=== PATIENT | female | born 1990 | race Caucasian/White ===

== ENCOUNTER 2017-03-24 08:45 | Inpatient (IN) | payer BC ==
[~2017-03-24] VITALS: Ht 162.7 cm; Wt 86.4 kg
[2017-04-17] VITALS (18 sets, daily range): BP systolic 97–117; BP diastolic 53–79; PULSE 71–101; TEMP 97.8–98.3
[2017-04-17] MEDS ORDERED: PRENATAL MVI (09:06)
[2017-04-17 10:12] LABS: BASO % 0.3 % (0.0-2.0); EOS # 0.1 (0.0-0.7); EOS % 1.3 % (0-4.0); GRAN # 5.4 (1.4-6.5); GRAN % 71.7 % (42.2-75.2); HEMATOCRIT 37.5 % (37.0-47.0); LYMPH # 1.6 (1.2-3.4); LYMPH % 20.8 % (20.0-51.0); MEAN CELL VOLUME 85 fl (80.0-100.0); MEAN CORPUSCULAR HEMOGLOBIN 30 pg (27.0-31.0); MEAN CORPUSCULAR HGB CONC 35 g/dl (33.0-37.0); MEAN PLATELET VOLUME 10.6 fl (7.4-10.4); MONO # 0.4 (0.1-0.6); MONO % 5.4 % (1.7-9.3); PLATELET COUNT 237 K/mm3 (130-400); WHITE BLOOD COUNT 7.6 K/mm3 (4.8-10.8)
[2017-04-17] MEDS ORDERED: IBU600 MG PO (12:49)
[2017-04-17] MEDS ORDERED: PERCOCET 325 MG1 TA2 PO (12:50)
[2017-04-18 02:00] VITALS: BP 108/60; PULSE 76; TEMP 98
[2017-04-18 07:43] LABS: BASO % 0.3 % (0.0-2.0); EOS # 0.2 (0.0-0.7); EOS % 1.7 % (0-4.0); GRAN # 7.2 (1.4-6.5); GRAN % 71.8 % (42.2-75.2); LYMPH % 20.1 % (20.0-51.0); MEAN CELL VOLUME 87 fl (80.0-100.0); MEAN CORPUSCULAR HGB CONC 34 g/dl (33.0-37.0); MEAN PLATELET VOLUME 9.7 fl (7.4-10.4); MONO # 0.6 (0.1-0.6); MONO % 5.6 % (1.7-9.3); PLATELET COUNT 225 K/mm3 (130-400); RED BLOOD COUNT 4.05 M/mm3 (4.10-5.30)
[2017-04-18 07:47] LABS: HEMATOCRIT 35.2 % (37.0-47.0); HEMOGLOBIN 11.9 g/dl (12.5-16.0); MEAN CORPUSCULAR HEMOGLOBIN 29 pg (27.0-31.0)
[2017-04-18 08:20] VITALS: BP 115/67; PULSE 95; TEMP 98.9
[2017-04-18 12:00] VITALS: BP 102/60; PULSE 92; TEMP 98.7
[2017-04-18 17:00] VITALS: BP 113/62; PULSE 91; TEMP 98.2
[2017-04-18 19:30] VITALS: BP 120/60; PULSE 98; TEMP 98.5
[2017-04-19 06:49] VITALS: BP 119/75; PULSE 100; TEMP 98.5
== END 2017-04-19 13:20 | disposition home or self-care (01) | DRG 766 ==
LOC: LDR 04-17 07:44 → OB 04-17 08:42 → LDR 04-24 08:45
PROVIDERS: Obstetrics & Gynecology
PROC: 10D00Z1 Extraction of Products of Conception, Low, Open Approach (ICD-10-PCS; principal; 2017-04-17)
DX: O34.211 Maternal care for low transverse scar from previous cesarean delivery (principal); N85.8 Other specified noninflammatory disorders of uterus; Z3A.39 39 weeks gestation of pregnancy; Z37.0 Single live birth
CPT/HCPCS: J0690; J1885; J2270; J2405; J2590; J7120